=== PATIENT | male | born 1960 | race American Indian/Alaskan Native ===

== ENCOUNTER 2016-10-30 07:24 | Day surgery (SDC) | payer BC, OTHER ==
[~2016-10-30 07:24] MED LIST: Midazolam 1 MG/ML 2 ML SDV ONE; fentaNYL 100 MCG/2 ML SDV ONE
[2016-10-30] MEDS ORDERED: Dextrose 5%-0.45% NaCl 1,000 ML IV SCH (08:00)
[2016-10-30] MEDS ORDERED: Sodium Chloride 0.9% 10 ML Syringe FLUSH PRN (08:00)
[2016-10-30] MEDS ORDERED: fentaNYL 100 MCG/2 ML SDV IV ONE ×3 (08:22→16:46)
[2016-10-30] MEDS ORDERED: Midazolam 1 MG/ML 2 ML SDV IV ONE ×7 (08:23→16:46)
--- NOTE | 2016-10-30 09:56 | LETTER ---
10/30/2016 RUDY Dickey [facility] [address] [place] [address] RE: YEFRI DOMINGUEZ : 1960 Dear Laquita: Mr. Yefri Dominguez had colonoscopic examination done this morning, and he tolerated the procedure well. I herewith send a copy of the endoscopy note and photographs for your review. Thank you, Sincerely. [facility] /[id number]
--- NOTE | 2016-10-30 10:32 | OR ---
DATE: 10/30/2016 PROCEDURE: Total colonoscopy, NBI, and cold snare polypectomy. INSTRUMENT USED: CF-H180AL Olympus video colonoscope. PREMEDICATIONS: Fentanyl 100 mcg intravenous, Versed 4 mg intravenous. Nasal 2 L O2 cannula. The procedure was done under pulse oximetry, BP recording, and school lunch monitor. INDICATION: The patient with Hemoccult positive stools. Colonoscopic examination is done for detection of any polypoid lesions and removal, endoscopic hemostasis therapy if needed. DESCRIPTION OF PROCEDURE: Initial rectal exam was unremarkable. Rigid anoscopy showed small internal hemorrhoids without bleeding from them. The colonoscope was passed with ease. A few scattered diverticula were noted in the distal left colon. The scope was passed with ease up to the ileocecal area, photographs were taken of the normal-appearing cecum, identified by landmarks of appendiceal orifice and double-bulged ileocecal folds. No bleeding was noted from any of the visualized areas at the commencement of the examination. No stricture. No vascular ectasia. No large isolated ulcerations seen. No evidence of diffuse inflammatory bowel disease in the form of friability, contact bleeding, or ulcerations. Probing the proximal sides of folds and flexures, using adequate distention and clearing up the stool material, withdrawal of the scope was made, cecum to rectum time over 6 minutes. In the distal sigmoid colon, 5 mm sized benign-appearing polyp was noted, NBI views were obtained, photographs were taken, cold snare polypectomy was done, the tissue was retrieved and sent for histopathology. No bleeding was noted from any of the visualized areas at the completion of examination. IMPRESSION: 1. Internal hemorrhoids. 2. Sigmoid polyp. The patient tolerated the procedure well. [facility] /[id number]
[2016-10-30 10:45] VITALS: BP 118/61
== END 2016-10-30 10:45 | disposition home or self-care (01) ==
LOC: DL.ENDO 07:24
PROVIDERS: ATTEND Internal Medicine Gastroenterology
DX: K63.5 Polyp of colon (principal); I10 Essential (primary) hypertension; E11.9 Type 2 diabetes mellitus without complications; E78.5 Hyperlipidemia, unspecified; E66.09 Other obesity due to excess calories; Z79.4 Long term (current) use of insulin; Z79.899 Other long term (current) drug therapy
CPT/HCPCS: 45385; J2250; J3010; J7042

== ENCOUNTER 2017-12-05 21:48 | Emergency (ER) | payer BC, OTHER ==
[2017-12-05] MEDS ORDERED: Acetaminophen/HYDROcodone 325-10 MG Tab PO ONE (21:49)
[2017-12-05 23:09] VITALS: BP 156/84
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
[2017-12-06] MEDS ORDERED: Acetaminophen/HYDROcodone 325-10 MG Tab ONE (01:03)
== END 2017-12-06 01:08 | disposition home or self-care (01) ==
LOC: DL.ED 21:48
DX: S90.31XA Contusion of right foot, initial encounter (principal); S90.121A Contusion of right lesser toe(s) without damage to nail, initial encounter; S80.812A Abrasion, left lower leg, initial encounter; S80.811A Abrasion, right lower leg, initial encounter; E78.00 Pure hypercholesterolemia, unspecified; I10 Essential (primary) hypertension; E11.9 Type 2 diabetes mellitus without complications; Z91.018 Allergy to other foods; Z91.013 Allergy to seafood; Z79.82 Long term (current) use of aspirin; Z79.4 Long term (current) use of insulin; Z79.899 Other long term (current) drug therapy; V89.2XXA Person injured in unspecified motor-vehicle accident, traffic, initial encounter
CPT/HCPCS: 72170; 73030-RT; 73590-50; 73630-RT; 99284; A9270-GY

== ENCOUNTER 2020-01-24 13:20 | Emergency (ER) | payer BC, OTHER ==
[2020-01-24 13:28] VITALS: BP 242/106; PULSE 110
--- NOTE | 2020-01-24 13:48 | EDM.PDOC ---
ED HPI GENERAL MEDICAL PROBLEM - General Chief Complaint: Respiratory Problem Stated Complaint: IN BY [facility] Time Seen by Provider: 01/24/20 13:30 Source of Information: Reports: Patient History Limitations: Reports: No Limitations - History of Present Illness INITIAL COMMENTS - FREE TEXT/NARRATIVE: This 60 yo male patient reports to the ED with increased shortness of breath over the past 2-4 days. The patient reports he was prescribed a different antibiotic (Bactrim) while being seen at the walk in clinic. After taking one dose, the patient reports he started to notice shortness of breath when he would go to bed. The patient also reports that he did have contact with someone that had been around a person with COVID. The patient reports he has been working on an infection in his left foot. The patient reports he started with seeing Dr. Felix on 01/02/20. Since his initial visit, the patient has been on 4 antibiotics (Doxycycline, Clindamycin, Augmentin and Bactrim). Duration: Day(s):, Constant Location: Reports: Chest Quality: Reports: Other Severity: Moderate Improves with: Reports: None Worsens with: Reports: None Context: Reports: Other Associated Symptoms: Reports: Shortness of Breath - Related Data Allergies Allergy/AdvReac Type Severity Reaction Status Date / Time coker Allergy Hives Verified 12/05/17 23:03 shellfish derived Allergy Anaphylactic Verified 12/05/17 23:03 Shock Home Meds: Home Meds Aspirin [Stephanie Chewable] 81 mg PO DAILY 05/17/14 [History] metFORMIN [Glucophage] 1,000 mg PO BIDM 05/17/14 [History] Insulin Detemir [Levemir Flextouch] 75 units SQ BEDTIME 09/16/16 [History] Multivitamin [Multiple Vitamins] 1 tab PO DAILY 09/17/16 [History] Docusate Sodium 100 mg PO BID 10/20/16 [History] Psyllium [Metamucil] 1 dose PO DAILY 10/20/16 [History] Docusate Sodium [Colace] 200 mg PO BID 10/30/16 [History] Past Medical History HEENT History: Reports: Allergic Rhinitis, Impaired Vision, Other (See Below) Other HEENT History: TINNITUS. WEARS CORRECTIVE LENS Cardiovascular History: Reports: CAD, High Cholesterol, Hypertension Respiratory History: Reports: None Gastrointestinal History: Reports: Chronic Constipation, Hemorrhoids, Other (See Below) Other Gastrointestinal History: FATTY LIVER Genitourinary History: Reports: BPH Musculoskeletal History: Reports: Other (See Below) Other Musculoskeletal History: OLECRANON BURSITIS OF LEFT ELBOW Neurological History: Reports: Other (See Below) Other Neuro History: BELLS PALSY Psychiatric History: Reports: None Endocrine/Metabolic History: Reports: Diabetes, Type II, Obesity/BMI 30+ Hematologic History: Reports: None Immunologic History: Reports: None Oncologic (Cancer) History: Reports: None Dermatologic History: Reports: Cellulitis, Other (See Below) Other Dermatologic History: HX OF FURUNCULOSIS OF CHEST WALL - EXCISION TO DRAIN - MRSA - Infectious Disease History Infectious Disease History: Reports: Chicken Pox, MRSA - Past Surgical History Head Surgeries/Procedures: Reports: None Respiratory Surgical History: Reports: None Male Surgical History: Reports: None Oncologic Surgical History: Reports: None Social & Family History - Caffeine Use Caffeine Use: Reports: Coffee Other Caffeine Use: AVERAGE DAILY INTAKE OF 12 CUPS DAILY - Living Situation & Occupation Living situation: Reports: , with Family Occupation: Retired ED ROS GENERAL - Review of Systems Review Of Systems: Comprehensive ROS is negative, except as noted in HPI. ED EXAM, GENERAL - Physical Exam Exam: See Below Exam Limited By: No Limitations General Appearance: Alert, WD/WN, Anxious, Moderate Distress Eye Exam: Bilateral Eye: EOMI, Normal Inspection, PERRL Ears: Normal External Exam, Normal Canal, Hearing Grossly Normal, Normal TMs Nose: Normal Inspection, Normal Mucosa, No Blood Throat/Mouth: Normal Inspection, Normal Lips, Normal Teeth, Normal Gums, Normal Oropharynx, Normal Voice, No Airway Compromise Head: Atraumatic, Normocephalic Neck: Normal Inspection, Supple, Non-Tender, Full Range of Motion Respiratory/Chest: No Respiratory Distress, Lungs Clear, Normal Breath Sounds, No Accessory Muscle Use, Chest Non-Tender Cardiovascular: Normal Peripheral Pulses, Regular Rate, Rhythm, No Edema, No Gallop, No JVD, No Murmur, No Rub GI/Abdominal: Normal Bowel Sounds, Soft, Non-Tender, No Organomegaly, No Distention, No Abnormal Bruit, No Mass (Male) Exam: Deferred Rectal (Males) Exam: Deferred Back Exam: Normal Inspection, Full Range of Motion, NT Extremities: Normal Inspection, Normal Range of Motion, Non-Tender, Normal Capillary Refill, No Pedal Edema Neurological: Alert, Oriented, CN II-XII Intact, Normal Cognition, Normal Gait, Normal Reflexes, No Motor/Sensory Deficits Psychiatric: Normal Affect, Normal Mood Skin Exam: Warm, Dry, Intact, Normal Color, No Rash Lymphatic: No Adenopathy Course - Vital Signs Last Recorded V/S: Last Vital Signs Temp 36.8 C 01/24/20 13:27 Pulse 110 H 01/24/20 13:27 Resp 18 01/24/20 13:27 BP 242/106 H 01/24/20 13:27 Pulse Ox 98 01/24/20 13:27 - Orders/Labs/Meds Orders: Active Orders 24 hr Category Date Time Status Chest 2V [CR] Urgent Exams 01/24/20 14:14 Taken Labs: Laboratory Tests 01/24/20 01/24/20 01/24/20 Range/Units 13:40 13:40 14:13 WBC 4.9 L (5.0-10.0) 10^3/uL RBC 4.64 (4.6-6.2) 10^6/uL Hgb 13.9 L (14.0-18.0) g/dL Hct 40.8 (40.0-54.0) % MCV 87.9 (80-100) fL MCH 30.0 (27.0-34.0) pg MCHC 34.1 (33.0-35.0) g/dL Plt Count 204 (150-450) 10^3/uL Neut % (Auto) 56.0 (42.2-75.2) % Lymph % (Auto) 31.8 (20.5-50.1) % [place] % (Auto) 10.6 H (2-8) % Eos % (Auto) 1.2 (1.0-3.0) % Baso % (Auto) 0.4 (0.0-1.0) % Sodium (136-145) mmol/L Potassium (3.5-5.1) mmol/L Chloride (98-107) mmol/L Carbon Dioxide (21-32) mmol/L Anion Gap (7-13) mEq/L BUN (7-18) mg/dL Creatinine (0.70-1.30) mg/dL Est Cr Clr Drug Dosing mL/min Estimated GFR (MDRD) BUN/Creatinine Ratio (No establ ref range) Glucose (74-99) mg/dL Lactic Acid (0.4-2.0) mmol/L Calcium (8.5-10.1) mg/dL Total Bilirubin (0.2-1.0) mg/dL AST (15-37) U/L ALT (16-63) U/L Alkaline Phosphatase (46-116) U/L Total Protein (6.4-8.2) g/dL Albumin (3.4-5.0) g/dL Globulin Albumin/Globulin Ratio Urine Color Yellow (YELLOW) Urine Appearance Clear (CLEAR) Urine pH 7.0 (5.0-9.0) Ur Specific [place] 1.020 (1.005-1.030) Urine Protein >=300 H (NEGATIVE) Urine Glucose (UA) Negative (NEGATIVE) Urine Ketones Negative (NEGATIVE) Urine Occult Blood Moderate H (NEGATIVE) Urine Nitrite Negative (NEGATIVE) Urine Bilirubin Negative (NEGATIVE) Urine Urobilinogen 0.2 (0.2-1.0) mg/dL Ur Leukocyte Esterase Negative (NEGATIVE) Urine RBC 10-20 H /HPF Urine WBC 0-5 (0-5/HPF) /HPF Ur Epithelial Cells Rare (NOT SEEN) /HPF Urine Bacteria Few (0-FEW/HPF) /HPF COVID-19 (OMA) Negative (NEGATIVE) 01/24/20 01/24/20 Range/Units 14:13 14:13 WBC (5.0-10.0) 10^3/uL RBC (4.6-6.2) 10^6/uL Hgb (14.0-18.0) g/dL Hct (40.0-54.0) % MCV (80-100) fL MCH (27.0-34.0) pg MCHC (33.0-35.0) g/dL Plt Count (150-450) 10^3/uL Neut % (Auto) (42.2-75.2) % Lymph % (Auto) (20.5-50.1) % [place] % (Auto) (2-8) % Eos % (Auto) (1.0-3.0) % Baso % (Auto) (0.0-1.0) % Sodium 136 (136-145) mmol/L Potassium 4.4 (3.5-5.1) mmol/L Chloride 104 (98-107) mmol/L Carbon Dioxide 30 (21-32) mmol/L Anion Gap 6.4 L (7-13) mEq/L BUN 13 (7-18) mg/dL Creatinine 1.07 (0.70-1.30) mg/dL Est Cr Clr Drug Dosing 77.70 mL/min Estimated GFR (MDRD) > 60 BUN/Creatinine Ratio 12.1 (No establ ref range) Glucose 135 H (74-99) mg/dL Lactic Acid 0.9 (0.4-2.0) mmol/L Calcium 8.6 (8.5-10.1) mg/dL Total Bilirubin 0.7 (0.2-1.0) mg/dL AST 38 H (15-37) U/L ALT 45 (16-63) U/L Alkaline Phosphatase 94 (46-116) U/L Total Protein 7.6 (6.4-8.2) g/dL Albumin 2.5 L (3.4-5.0) g/dL Globulin 5.1 Albumin/Globulin Ratio 0.49 Urine Color (YELLOW) Urine Appearance (CLEAR) Urine pH (5.0-9.0) Ur Specific [place] (1.005-1.030) Urine Protein (NEGATIVE) Urine Glucose (UA) (NEGATIVE) Urine Ketones (NEGATIVE) Urine Occult Blood (NEGATIVE) Urine Nitrite (NEGATIVE) Urine Bilirubin (NEGATIVE) Urine Urobilinogen (0.2-1.0) mg/dL Ur Leukocyte Esterase (NEGATIVE) Urine RBC /HPF Urine WBC (0-5/HPF) /HPF Ur Epithelial Cells (NOT SEEN) /HPF Urine Bacteria (0-FEW/HPF) /HPF COVID-19 (OMA) (NEGATIVE) Departure - Departure Time of Disposition: 14:54 Disposition: Home, Self-Care 01 Condition: Fair Clinical Impression: Viral URI - Discharge Information *PRESCRIPTION DRUG MONITORING PROGRAM REVIEWED*: Not Applicable *COPY OF PRESCRIPTION DRUG MONITORING REPORT IN PATIENT JOCELYNN: Not Applicable Instructions: Viral Respiratory Infection, [id number] Forms: ED Department Discharge Care Plan Goals: The patient was advised of the examination, lab and x-ray results during the visit. The patient was encouraged to follow-up with his primary care facility for continued evaluation and management. If the patient has any additional symptoms or concerns, the patient should either return to the emergency department or visit his primary care facility. Sepsis Event Note (ED) - Evaluation Sepsis Screening Result: No Definite Risk - Focused Exam Vital Signs: Vital Signs Temp Pulse Resp BP Pulse Ox 01/24/20 13:27 36.8 C 110 H 18 242/106 H 98 - My Orders Last 24 Hours: My Active Orders 01/24/20 14:14 Chest 2V [CR] Urgent - Assessment/Plan Last 24 Hours: My Active Orders 01/24/20 14:14 Chest 2V [CR] Urgent
[2020-01-24 14:38] LABS: ANION GAP 6.4 mEq/L (7-13); CHLORIDE,CL 104 mmol/L (98-107); SODIUM,NA 136 mmol/L (136-145)
--- NOTE | 2020-01-24 14:54 | CR ---
EXAMINATION: Chest 2V SEX: Male AGE: 60 years CLINICAL HISTORY: 60-year-old male emergency department complaining of shortness of breath. (Covid exam "negative") Interpretation: Abnormal. 1. *Patchy bibasilar lower lobe consolidation (left greater than right) new since 26 June 2006 comparison that may represent atelectasis i.e. less than optimal inspiratory effort. No air bronchograms. 2. Normal cardiac silhouette. No pulmonary vascular congestion, alveolar edema or dependent effusion. 3. No lung mass, hilar lymphadenopathy or other focal lobar consolidation. 4. No pneumothorax or pneumomediastinum. Midline tracheal bronchial airway unremarkable. 5. Bony thorax unremarkable. CONCLUSION: Probable bibasilar atelectasis. No signs of heart failure or lung mass.
== END 2020-01-24 15:00 | disposition home or self-care (01) ==
LOC: DL.ED 13:20
DX: J06.9 Acute upper respiratory infection, unspecified (principal); I10 Essential (primary) hypertension; I25.10 Atherosclerotic heart disease of native coronary artery without angina pectoris; E11.9 Type 2 diabetes mellitus without complications; E66.9 Obesity, unspecified; Z68.35 Body mass index [BMI] 35.0-35.9, adult; Z79.4 Long term (current) use of insulin; Z79.82 Long term (current) use of aspirin; Z79.899 Other long term (current) drug therapy; Z91.018 Allergy to other foods; Z91.013 Allergy to seafood; Z20.828 Contact with and (suspected) exposure to other viral communicable diseases
CPT/HCPCS: 36415; 71046; 80053; 81001; 83605; 85025; 99282; 99285-25; U0002

== ENCOUNTER 2023-05-12 15:18 | Emergency (ER) | payer BC, OTHER ==
[2023-05-12] MEDS ORDERED: Fluorescein 1 MG Ophth Strip EYEBOTH ONE (15:45)
[2023-05-12 15:51] VITALS: BP 175/80; PULSE 75
[2023-05-12] MEDS ORDERED: Proparacaine 0.5% Ophth Soln 15 ML Bottle EYERT STA (15:55)
== END 2023-05-12 17:35 | disposition other institution (70) ==
LOC: DL.ED 15:18
DX: S05.01XA Injury of conjunctiva and corneal abrasion without foreign body, right eye, initial encounter (principal); I10 Essential (primary) hypertension; I25.10 Atherosclerotic heart disease of native coronary artery without angina pectoris; E11.9 Type 2 diabetes mellitus without complications; E66.9 Obesity, unspecified; Z68.34 Body mass index [BMI] 34.0-34.9, adult; Z91.013 Allergy to seafood; Z91.018 Allergy to other foods; Z79.4 Long term (current) use of insulin; Z79.82 Long term (current) use of aspirin; Z79.899 Other long term (current) drug therapy; W22.8XXA Striking against or struck by other objects, initial encounter
CPT/HCPCS: 99282; 99284; J3490

== ENCOUNTER 2024-02-20 15:29 | Emergency (ER) | payer BC, OTHER ==
[2024-02-20 16:31] VITALS: BP 160/85; PULSE 72
== END 2024-02-20 17:06 | disposition home or self-care (01) ==
LOC: DL.ED 15:29
DX: M77.8 Other enthesopathies, not elsewhere classified (principal); I10 Essential (primary) hypertension; E78.00 Pure hypercholesterolemia, unspecified; E66.9 Obesity, unspecified; E11.9 Type 2 diabetes mellitus without complications; Z91.018 Allergy to other foods; Z91.013 Allergy to seafood; Z79.82 Long term (current) use of aspirin; Z79.84 Long term (current) use of oral hypoglycemic drugs; Z79.899 Other long term (current) drug therapy; Z68.35 Body mass index [BMI] 35.0-35.9, adult
CPT/HCPCS: 73070-LT; 99283

== ENCOUNTER 2024-08-16 11:41 | Inpatient (IN) | payer BC, OTHER ==
[2024-08-16 12:11] LABS: BASOPHILS PERCENT AUTO 0.5 % (0.0-1.0); EOSINOPHILS PERCENT AUTO 0.3 % (1.0-3.0); HEMATOCRIT 33.5 % (40.0-54.0); HEMOGLOBIN 11.4 g/dL (14.0-18.0); LYMPHOCYTES PERCENT AUTO 29.7 % (20.5-50.1); MEAN CORPUSCULAR HEMOGLOBIN 29.6 pg (27.0-34.0); MONOCYTES PERCENT AUTO 12.5 % (2-8); PLATELET COUNT,PLT 176 10^3/uL (150-450); RED BLOOD CELL COUNT 3.85 10^6/uL (4.6-6.2); WHITE BLOOD CELL COUNT,WBC 3.8 10^3/uL (5.0-10.0)
[2024-08-16 12:27] LABS: PROTHROMBIN TIME 10.6 SEC (9.0-12.0)
[2024-08-16 12:34] LABS: ALANINE AMINOTRANSFERASE,ALT 42 U/L (16-63); ALBUMIN 2.4 g/dL (3.4-5.0); ALKALINE PHOSPHATASE 122 U/L (46-116); ANION GAP 12.1 mEq/L (7-13); ASPARTATE AMNIOTRANSFERASE,AST 40 U/L (15-37); BILIRUBIN TOTAL 0.5 mg/dL (0.2-1.0); BLOOD UREA NITROGEN,BUN 41 mg/dL (7-18); BUN/CREATININE RATIO 27.3 (No establ ref range); CARBON DIOXIDE,CO2 25 mmol/L (21-32); CHLORIDE,CL 100 mmol/L (98-107); ESTIMATED GFR 52 mL/min (>=60); GLUCOSE RANDOM 110 mg/dL (70-99); MAGNESIUM 2.3 mg/dL (1.8-2.4); POTASSIUM,K 4.1 mmol/L (3.5-5.1); PROTEIN TOTAL,TP 7.2 g/dL (6.4-8.2); SODIUM,NA 133 mmol/L (136-145)
[2024-08-16 12:35] LABS: B-TYPE NATRIURETIC PEPTIDE,BNP 101 pg/ml (0-100)
[2024-08-16] MEDS: Benzonatate 100 MG Cap PO ONE (12:46)
[2024-08-16] MEDS: cefTRIAXone 1 GM Vial IVPUSH ONE (13:02)
[2024-08-16] MEDS: Azithromycin 500 MG in Sodium Chloride 0.9% 250 ML IV ONE (13:07)
[2024-08-16] MEDS: Lactated Ringers 1,000 ML IV SCH (13:08)
[2024-08-16] MEDS: Codeine/guaiFENesin 10-100 MG/5 ML Syrup 5 ML Cup PO ONE (13:31)
[2024-08-16] MEDS: Chlorthalidone 25 MG Tab PO ONE (14:04)
[2024-08-16] MEDS ORDERED: Metoprolol Tartrate 5 MG/5 ML SDV IVPUSH PRN (14:24)
[2024-08-16] MEDS ORDERED: Magnesium Hydroxide 400 MG/5 ML Susp 30 ML Cup PO PRN (14:25)
[2024-08-16] MEDS ORDERED: Polyethylene Glycol 3350 Powder 17 GM Packet PO PRN (14:25)
[2024-08-16] MEDS ORDERED: Sodium Chloride 0.9% 10 ML Syringe FLUSH PRN (14:25)
[2024-08-16] MEDS ORDERED: Acetaminophen/HYDROcodone 325-5 MG Tab PO PRN (14:25)
[2024-08-16] MEDS ORDERED: Sennosides/Docusate Sodium 50-8.6 MG Tab PO PRN (14:25)
[2024-08-16] MEDS ORDERED: HYDROmorphone 0.5 MG/0.5 ML Syringe IVPUSH PRN (14:25)
[2024-08-16] MEDS ORDERED: Ondansetron 4 MG/2 ML SDV IVPUSH PRN (14:25)
[2024-08-16] MEDS ORDERED: Naloxone 2 MG/2 ML Syringe IVPUSH PRN (14:25)
[2024-08-16] MEDS ORDERED: Glucagon,Human Recombinant 1 MG Vial IM PRN (14:29)
[2024-08-16] MEDS ORDERED: 50% Dextrose in Water 50 ML Syringe IVPUSH PRN (14:29)
[2024-08-16] MEDS: Albuterol/Ipratropium 3.0-0.5 MG/3 ML Neb Soln NEB PRN (14:46)
[2024-08-16 15:02] LABS: HEMOGLOBIN A1C 7.5 % (<5.7)
[2024-08-16] MEDS: Morphine 2 MG/ML SYRINGE IVPUSH ONE (15:13)
[2024-08-16] MEDS: Magnesium Sulf/Wat 2 GM/50 mL 2 GM in Premix Bag 1 BAG IV ONE (15:15)
[2024-08-16] MEDS: Famotidine 20 MG/2 ML SDV IVPUSH ONE (15:15)
[2024-08-16] MEDS: Dexamethasone 4 MG/ML SDV IVPUSH ONE (15:15)
[2024-08-16] MEDS: diphenhydrAMINE 50 MG/ML SDV IVPUSH ONE (15:15)
[2024-08-16] MEDS: Sodium Chloride 0.9% 1,000 ML IV SCH (15:34)
[2024-08-16] MEDS: Acetaminophen 325 MG Tab PO PRN (15:34)
[2024-08-16] MEDS: Insulin Lispro 100 Units/ML 3 ML Vial SUBCUT SCH (16:37)
[2024-08-16] MEDS: Ampicillin/Sulbactam Na 1.5 GM in Sodium Chloride 0.9% 100 ML IV SCH (18:06)
[2024-08-16] MEDS ORDERED: Morphine 2 MG/ML SYRINGE IVPUSH PRN (19:01)
[2024-08-16] MEDS: Furosemide 20 MG/2 ML VIAL IVPUSH ONE (19:49)
[2024-08-16] MEDS: VANCOmycin 1 GM in Sodium Chloride 0.9% 250 ML IV SCH (20:09)
[2024-08-16] MEDS: Docusate Sodium 100 MG Cap PO SCH (20:10)
[2024-08-16] MEDS: amLODIPine 5 MG Tab PO SCH (20:10)
[2024-08-16] MEDS: Saccharomyces Boulardii (Probiotic) 250 MG Cap PO SCH (20:10)
[2024-08-16] MEDS: Montelukast 10 MG Tab PO SCH (20:10)
[2024-08-16] MEDS: guaiFENesin 600 MG Tab.ER PO SCH (20:10)
[2024-08-16] MEDS: Gabapentin 100 MG Cap PO SCH (20:10)
[2024-08-16] MEDS: Codeine/guaiFENesin 10-100 MG/5 ML Syrup 5 ML Cup PO PRN (20:10)
[2024-08-16] MEDS: Insulin Glarg,Human.Rec.Analog 100 Unit/ML 10 ML Vial SUBCUT SCH (20:40)
[2024-08-16] MEDS: Benzonatate 100 MG Cap PO PRN (22:03)
[2024-08-16] MEDS: Sodium Chloride 0.9% 10 ML Syringe FLUSH SCH (23:54)
[2024-08-17 06:17] LABS: BASOPHILS PERCENT AUTO 0.3 % (0.0-1.0); HEMATOCRIT 29.3 % (40.0-54.0); HEMOGLOBIN 10.2 g/dL (14.0-18.0); LYMPHOCYTES PERCENT AUTO 13.8 % (20.5-50.1); MEAN CORPUSCULAR HEMOGLOBIN 30.1 pg (27.0-34.0); MEAN CORPUSCULAR HGB CONC 34.8 g/dL (33.0-35.0); MEAN CORPUSCULAR VOLUME 86.4 fL (80-100); MONOCYTES PERCENT AUTO 10.1 % (2-8); NEUTROPHILS PERCENT AUTO 75.8 % (42.2-75.2); PLATELET COUNT,PLT 184 10^3/uL (150-450); RED BLOOD CELL COUNT 3.39 10^6/uL (4.6-6.2); WHITE BLOOD CELL COUNT,WBC 3.8 10^3/uL (5.0-10.0)
[2024-08-17 06:45] LABS: ALBUMIN 2.1 g/dL (3.4-5.0); BILIRUBIN TOTAL 0.4 mg/dL (0.2-1.0); BUN/CREATININE RATIO 26.7 (No establ ref range); C-REACTIVE PROTEIN 10.1 ng/dL (<=0.50); CALCIUM 7.3 mg/dL (8.5-10.1); CREATININE 1.65 mg/dL (0.70-1.30); EST CRCL DRUG DOSING (CG) 44.91 mL/min; MAGNESIUM 2.4 mg/dL (1.8-2.4); POTASSIUM,K 4.6 mmol/L (3.5-5.1); PROTEIN TOTAL,TP 6.7 g/dL (6.4-8.2)
[2024-08-17 06:52] LABS: ANION GAP 11.6 mEq/L (7-13)
[2024-08-17 06:53] LABS: A/G RATIO 0.46
[2024-08-17] MEDS: Dexamethasone 6 MG TABLET PO SCH (08:41)
[2024-08-17] MEDS: Metoprolol Succinate 50 MG Tab.ER PO SCH (08:42)
[2024-08-17] MEDS: Enoxaparin 40 MG/0.4 ML Syringe SUBCUT SCH (08:42)
[2024-08-17] MEDS: Multivitamins with Iron/Calcium/Folic Acid/Minerals Tab PO SCH (08:43)
[2024-08-17] MEDS: Bisacodyl 10 MG Supp RECTAL ONE (11:52)
[2024-08-17] MEDS: Lactulose Soln 10 GM/15 ML 30 ML UD Cup PO ONE (11:52)
[2024-08-17] MEDS: Bumetanide 1 MG/4 ML MDV IVPUSH ONE (11:55)
[2024-08-17 20:13] LABS: CORONAVIRUS COVID-19 NAA NEGATIVE (NEGATIVE); INFLUENZA A NAA NEGATIVE (NEGATIVE); INFLUENZA B NAA NEGATIVE (NEGATIVE); RESPIRATORY SYNCYTIAL VIR NAA POSITIVE (NEGATIVE)
[2024-08-17] MEDS: VANCOmycin 1.25 GM in Sodium Chloride 0.9% 250 ML IV SCH (21:14)
[2024-08-17] MEDS: Zolpidem 5 MG Tab PO PRN (21:23)
[2024-08-18] MEDS: Albuterol/Ipratropium 3.0-0.5 MG/3 ML Neb Soln NEB SCH (05:24)
[2024-08-18 06:13] LABS: BASOPHILS PERCENT AUTO 0.2 % (0.0-1.0); HEMATOCRIT 31.5 % (40.0-54.0); HEMOGLOBIN 10.7 g/dL (14.0-18.0); LYMPHOCYTES PERCENT AUTO 20.4 % (20.5-50.1); MEAN CORPUSCULAR VOLUME 85.4 fL (80-100); NEUTROPHILS PERCENT AUTO 67.4 % (42.2-75.2); PLATELET COUNT,PLT 231 10^3/uL (150-450); RED BLOOD CELL COUNT 3.69 10^6/uL (4.6-6.2); WHITE BLOOD CELL COUNT,WBC 5.4 10^3/uL (5.0-10.0)
[2024-08-18 06:38] LABS: ALBUMIN 2.3 g/dL (3.4-5.0); ANION GAP 16.2 mEq/L (7-13); BILIRUBIN TOTAL 0.5 mg/dL (0.2-1.0); BUN/CREATININE RATIO 35.8 (No establ ref range); C-REACTIVE PROTEIN 5.74 ng/dL (<=0.50); CALCIUM 7.8 mg/dL (8.5-10.1); CREATININE 1.51 mg/dL (0.70-1.30); EST CRCL DRUG DOSING (CG) 49.07 mL/min; MAGNESIUM 2.7 mg/dL (1.8-2.4); POTASSIUM,K 4.2 mmol/L (3.5-5.1); PROTEIN TOTAL,TP 7.2 g/dL (6.4-8.2)
[2024-08-18 06:40] LABS: A/G RATIO 0.47
[2024-08-18] MEDS: Hydrochlorothiazide/Triamterene 25-37.5 Tab PO SCH (08:32)
[2024-08-18] MEDS ORDERED: [UNRECOGNIZED DRUG - OTHER] PO SCH (21:00)
[2024-08-18] MEDS: hydrALAZINE 25 MG Tab PO SCH (21:31)
[2024-08-18] MEDS: VANCOmycin 1.5 GM/300 ML 300 ML IV SCH (21:34)
[2024-08-19 06:28] LABS: HEMOGLOBIN 11.1 g/dL (14.0-18.0); MEAN CORPUSCULAR HEMOGLOBIN 28.9 pg (27.0-34.0); MEAN CORPUSCULAR HGB CONC 33.6 g/dL (33.0-35.0); MEAN CORPUSCULAR VOLUME 85.9 fL (80-100); PLATELET COUNT,PLT 278 10^3/uL (150-450); RED BLOOD CELL COUNT 3.84 10^6/uL (4.6-6.2); WHITE BLOOD CELL COUNT,WBC 6.8 10^3/uL (5.0-10.0)
[2024-08-19 06:30] LABS: BASOPHILS PERCENT AUTO 0.1 % (0.0-1.0); LYMPHOCYTES PERCENT AUTO 22.6 % (20.5-50.1); MONOCYTES PERCENT AUTO 11.8 % (2-8); NEUTROPHILS PERCENT AUTO 65.5 % (42.2-75.2)
[2024-08-19 06:48] LABS: SEG NEUTROPHILS PERCENT MAN 74 % (42-75)
[2024-08-19 06:49] LABS: LYMPHOCYTES % ATYPICAL MANUAL 3 %; LYMPHOCYTES PERCENT MAN 14 % (20-50); MONOCYTES PERCENT MAN 9 % (2-8)
[2024-08-19 06:50] LABS: ALBUMIN 2.3 g/dL (3.4-5.0); ANION GAP 15.1 mEq/L (7-13); BILIRUBIN TOTAL 0.5 mg/dL (0.2-1.0); BUN/CREATININE RATIO 38.9 (No establ ref range); C-REACTIVE PROTEIN 2.83 ng/dL (<=0.50); CREATININE 1.31 mg/dL (0.70-1.30); EST CRCL DRUG DOSING (CG) 56.56 mL/min; MAGNESIUM 2.8 mg/dL (1.8-2.4); POTASSIUM,K 4.1 mmol/L (3.5-5.1); PROTEIN TOTAL,TP 7.3 g/dL (6.4-8.2)
[2024-08-19 06:52] LABS: A/G RATIO 0.46
[2024-08-19] MEDS: hydrALAZINE 25 MG Tab PO SCH (09:20)
[2024-08-19] MEDS: Bumetanide 1 MG/4 ML MDV IVPUSH ONE (17:54)
[2024-08-19] MEDS: hydrALAZINE 20 MG/ML SDV IVPUSH PRN (18:30)
[2024-08-20] MEDS: Calcium Carbonate 500 MG Tab.Chew PO PRN (00:02)
[2024-08-20] MEDS: Pantoprazole 40 MG Vial IVPUSH ONE (00:02)
[2024-08-20 05:42] LABS: HEMATOCRIT 31.9 % (40.0-54.0); HEMOGLOBIN 10.6 g/dL (14.0-18.0); MEAN CORPUSCULAR HEMOGLOBIN 28.8 pg (27.0-34.0); MEAN CORPUSCULAR HGB CONC 33.2 g/dL (33.0-35.0); MEAN CORPUSCULAR VOLUME 86.7 fL (80-100); PLATELET COUNT,PLT 249 10^3/uL (150-450); RED BLOOD CELL COUNT 3.68 10^6/uL (4.6-6.2); WHITE BLOOD CELL COUNT,WBC 7.5 10^3/uL (5.0-10.0)
[2024-08-20 05:50] LABS: MONOCYTES PERCENT AUTO 12.8 % (2-8); NEUTROPHILS PERCENT AUTO 66.2 % (42.2-75.2)
[2024-08-20 06:07] LABS: A/G RATIO 0.5; ALBUMIN 2.2 g/dL (3.4-5.0); ANION GAP 13.6 mEq/L (7-13); BILIRUBIN TOTAL 0.5 mg/dL (0.2-1.0); BUN/CREATININE RATIO 36.2 (No establ ref range); C-REACTIVE PROTEIN 1.68 ng/dL (<=0.50); CALCIUM 7.9 mg/dL (8.5-10.1); CREATININE 1.3 mg/dL (0.70-1.30); MAGNESIUM 2.6 mg/dL (1.8-2.4); POTASSIUM,K 4.6 mmol/L (3.5-5.1); PROTEIN TOTAL,TP 6.6 g/dL (6.4-8.2)
[2024-08-20 06:15] LABS: LYMPHOCYTES PERCENT MAN 23 % (20-50); MONOCYTES PERCENT MAN 15 % (2-8); SEG NEUTROPHILS PERCENT MAN 62 % (42-75)
[2024-08-20] MEDS: cloNIDine 0.1 MG Tab PO ONE ×2 (09:44→18:01)
[2024-08-20] MEDS: Dexamethasone 4 MG/ML SDV IVPUSH ONE (18:35)
[2024-08-20 19:30] VITALS: BP 154/69; PULSE 80
== END 2024-08-20 20:05 | disposition home or self-care (01) | DRG 138 ==
LOC: DL.ED 11:41 → DL.MS 13:35
PROVIDERS: ADMIT Internal Medicine; ATTEND Internal Medicine
DX: J12.1 Respiratory syncytial virus pneumonia (principal); J96.01 Acute respiratory failure with hypoxia; N17.9 Acute kidney failure, unspecified; E87.1 Hypo-osmolality and hyponatremia; E88.09 Other disorders of plasma-protein metabolism, not elsewhere classified; E11.22 Type 2 diabetes mellitus with diabetic chronic kidney disease; H54.7 Unspecified visual loss; E78.00 Pure hypercholesterolemia, unspecified; I25.10 Atherosclerotic heart disease of native coronary artery without angina pectoris; G51.0 Bell's palsy; K59.09 Other constipation; N40.0 Benign prostatic hyperplasia without lower urinary tract symptoms; F15.90 Other stimulant use, unspecified, uncomplicated; J98.01 Acute bronchospasm; D72.829 Elevated white blood cell count, unspecified; E11.65 Type 2 diabetes mellitus with hyperglycemia; R79.89 Other specified abnormal findings of blood chemistry; N18.9 Chronic kidney disease, unspecified; I12.9 Hypertensive chronic kidney disease with stage 1 through stage 4 chronic kidney disease, or unspecified chronic kidney disease; E66.812 Obesity, class 2; Z91.013 Allergy to seafood; Z91.018 Allergy to other foods; Z79.84 Long term (current) use of oral hypoglycemic drugs; Z79.82 Long term (current) use of aspirin; Z79.4 Long term (current) use of insulin; Z79.02 Long term (current) use of antithrombotics/antiplatelets; Z79.51 Long term (current) use of inhaled steroids; Z79.891 Long term (current) use of opiate analgesic; Z79.899 Other long term (current) drug therapy; Z87.891 Personal history of nicotine dependence; Z68.37 Body mass index [BMI] 37.0-37.9, adult; Z98.890 Other specified postprocedural states
CPT/HCPCS: 0241U; 36415; 71045; 71046; 76770; 80053; 80202; 82947; 83036; 83735; 83880; 84484; 85025; 85610; 86140; 87040; 87070; 87205; 93005; 93010; 94010; 94640; 94667; 94668; 96365; 96375; 99285; 99285-25; A9270-GY; J0295; J0360; J0456; J0696; J1100; J1200; J1650; J1815-GY; J1940; J2270; J2470; J3371; J3372; J3475; J3490; J7030; J7050; J7120; J7620-GY; J8540

== ENCOUNTER 2024-08-22 18:22 | Emergency (ER) | payer BC, OTHER ==
[2024-08-22 19:07] VITALS: PULSE 75
[2024-08-22 20:35] VITALS: BP 154/72
== END 2024-08-22 20:33 | disposition home or self-care (01) ==
LOC: DL.ED 18:22
DX: I10 Essential (primary) hypertension (principal); J18.9 Pneumonia, unspecified organism; I25.10 Atherosclerotic heart disease of native coronary artery without angina pectoris; E78.00 Pure hypercholesterolemia, unspecified; E11.9 Type 2 diabetes mellitus without complications; E66.9 Obesity, unspecified; Z68.28 Body mass index [BMI] 28.0-28.9, adult; Z91.018 Allergy to other foods; Z91.013 Allergy to seafood; Z79.4 Long term (current) use of insulin; Z79.84 Long term (current) use of oral hypoglycemic drugs; Z79.82 Long term (current) use of aspirin; Z79.51 Long term (current) use of inhaled steroids; Z79.899 Other long term (current) drug therapy
CPT/HCPCS: 93010; 99283; 99284